=== PATIENT | male | born 1970 | race Caucasian/White ===

== ENCOUNTER 2020-01-22 13:16 | Emergency (ER) | payer MEDICAID, OTHER ==
[~2020-01-22] VITALS: Ht 182.9 cm; Wt 113.4 kg
[2020-01-22 14:49] LABS: Basophils # (auto) 0.1 10 ^3/uL (0-0.2); Basophils % (auto) 0.7 % (0.0-2.0); Eosinophils # (auto) 0.2 10 ^3/uL (0-0.8); Eosinophils % (auto) 2.4 % (0.0-7.0); Hematocrit 46.5 % (41.0-53.0); Hemoglobin 15.2 g/dL (13.5-17.5); Lymphocytes # (auto) 1.5 10 ^3/uL (0.4-5.4); Lymphocytes % (auto) 20.7 % (10.0-50.0); Mean Corpuscular Hemoglobin 31.5 pg (28.0-32.0); Mean Corpuscular Hgb Conc. 32.7 g/dL (32.0-36.0); Mean Corpuscular Volume 96.4 fL (80.0-100.0); Monocytes % (auto) 12.8 % (0.0-12.0); Neutrophils # (auto) 4.7 10 ^3/uL (1.6-8.6); Neutrophils % (auto) 63.4 % (37.0-80.0); Platelet Count (auto) 208 10^3/uL (140-450); Red Blood Cells 4.82 10^6/uL (4.5-5.90); Red Cell Distribution Width 14.3 % (11.8-14.3); White Blood Cell 7.5 10^3/uL (4.4-10.8)
[2020-01-22 15:07] LABS: Albumin 4.3 g/dL (3.4-5.0); Anion Gap 5 (5-15); Blood Urea Nitrogen 11 mg/dL (7-18); Carbon Dioxide 28 mmol/L (21-32); Chloride 106 mmol/L (98-107); Glucose 96 mg/dL (74-106); Magnesium 2.8 mg/dL (1.6-2.6); Potassium 4.2 mmol/L (3.5-5.1); Sodium 139 mmol/L (136-145)
[2020-01-22 15:12] LABS: Alanine Aminotransferase 36 U/L (16-61); Alkaline Phosphatase 77 U/L (45-117); Aspartate Aminotransferase 22 U/L (15-37); BUN/Creatinine Ratio 9.9; Bilirubin, Total 0.5 mg/dL (0.2-1.0); GFR African American 90 mL/min; GFR Non-African American 75 mL/min; Total Protein 8.1 g/dL (6.4-8.2)
[2020-01-22 15:38] VITALS: BP 144/89
== END 2020-01-22 15:40 | disposition home or self-care (01) ==
LOC: ER 13:16
DX: T67.5XXA Heat exhaustion, unspecified, initial encounter (principal); I48.91 Unspecified atrial fibrillation; I50.9 Heart failure, unspecified; E78.5 Hyperlipidemia, unspecified; X58.XXXA Exposure to other specified factors, initial encounter; Y93.89 Activity, other specified; Y92.89 Other specified places as the place of occurrence of the external cause; Y99.8 Other external cause status
CPT/HCPCS: 36415; 71046; 80053; 83735; 83880; 84484; 85025; 93005